=== PATIENT | female | born 2000 | race Caucasian/White ===

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

== ENCOUNTER 2021-05-06 13:01 | Emergency (ER) | payer MEDICAID ==
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
[2021-05-06 13:52] LABS: ANION GAP 18.7 mmol/L (5-15); CHLORIDE,CL 103 mmol/L (98-107); SODIUM,NA 141 mmol/L (136-145)
--- NOTE | 2021-05-06 14:23 | CR ---
[id number] RAD/RAD Chest PA And Lateral EXAM: RAD Chest PA And Lateral INDICATION: ASTHMA. COMPARISON: December 27, 2020. DISCUSSION/IMPRESSION: Cardiomediastinal silhouette is normal in size and contour. Lungs are clear. No pleural effusion or pneumothorax. Miko Souza MD 05/06/21 [id number] Thank you for allowing us to participate in the care of your patient.
[2021-05-06] MEDS ORDERED: methylPREDNISolone Sodium Succinate 125 MG/2 ML SDV IVPUSH ONE (14:31)
== END 2021-05-06 15:00 | disposition home or self-care (01) ==
LOC: KA.ED 13:01
DX: J45.901 Unspecified asthma with (acute) exacerbation (principal); F41.9 Anxiety disorder, unspecified; E87.6 Hypokalemia; F12.10 Cannabis abuse, uncomplicated; R73.9 Hyperglycemia, unspecified; Z72.0 Tobacco use; Z79.899 Other long term (current) drug therapy
CPT/HCPCS: 71046; 80053; 85025; 96374; 99284; 99285-25; J2930

== ENCOUNTER 2021-05-06 17:25 | Observation (INO) | payer MEDICAID ==
--- NOTE | 2021-05-06 17:38 | EDM.PDOC ---
ED HPI GENERAL MEDICAL PROBLEM - General Chief Complaint: Respiratory Problem Stated Complaint: SHORTNESS OF BREATH Time Seen by Provider: 05/06/21 17:30 Source of Information: Reports: Patient - History of Present Illness INITIAL COMMENTS - FREE TEXT/NARRATIVE: Ayanna, 20-year-old female is brought by ambulance to the emergency department secondary of worsening respiratory status. Was seen earlier today and provided nebulizer treatment with laboratory analysis showing no infectious process, and was given 125 mg Solu-Medrol IV. She was doing well offered admission declined and went home, this time going to another house location in a mobile home where it was deemed to be less environmental risk factors for her. She then started developing increased wheezing anxiety and respiratory distress at which time her mother called to discuss situation with me. She was unable to get out of the chair secondary of her weakness that had not been previously noted and ambulance was contacted for transport here. It is likely that she will be needing admission secondary of exacerbation of asthma with unknown exposure or other contributing factors. She denies any exposures or any other contributing events that would have worsened this other than she changed location.She denies any fever, nor chills or other changes in exposures and status with recurrence of her earlier noted bronchospasm status.No smoke or byproducts noted since leaving the hospital previously. Onset: Today Duration: Minutes:, Getting Worse Location: Reports: Chest Quality: Reports: Burning, Pressure Severity: Moderate Improves with: Reports: None Worsens with: Reports: Breathing Back Pain Score (Numeric/FACES): 7 - Related Data Allergies Allergy/AdvReac Type Severity Reaction Status Date / Time No Known Drug Allergies Allergy Unknown Other Verified 05/06/21 17:39 Home Meds: Home Meds Acetaminophen [Tylenol] 650 mg PO Q4H PRN tablet 12/30/20 [Rx] Albuterol [Proventil Neb Soln] 2.5 mg NEB Q4HRRT PRN #30 neb 12/30/20 [Rx] Albuterol [Ventolin HFA] 1 - 2 gm INH Q4HR PRN inhaler 12/30/20 [Rx] Albuterol [Proventil HFA] 200 puff INH QID 50 Days #1 inhaler 05/06/21 [Rx] Budesonide [Pulmicort] 0.5 mg NEB DAILY 05/06/21 [History] Escitalopram Oxalate 10 mg PO DAILY 30 Days #30 tablet 05/06/21 [Rx] predniSONE 20 mg PO WITHBREAKFAST 4 Days #11 tab 05/06/21 [Rx] Past Medical History HEENT History: Reports: None Cardiovascular History: Reports: None Respiratory History: Reports: Asthma Gastrointestinal History: Reports: None Genitourinary History: Reports: None 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 Neurological History: Reports: Seizure Psychiatric History: Reports: Anxiety, Depression, Suicide Attempt Endocrine/Metabolic History: Reports: None Hematologic History: Reports: None Immunologic History: Reports: None Oncologic (Cancer) History: Reports: None Dermatologic History: Reports: Eczema - Infectious Disease History Infectious Disease History: Reports: Other (See Below) Other Infectious Disease History: hx of Gonorrhea - Past Surgical History Head Surgeries/Procedures: Reports: None HEENT Surgical History: Reports: None Cardiovascular Surgical History: Reports: None GI Surgical History: Reports: None Musculoskeletal Surgical History: Reports: Other (See Below) Other Musculoskeletal Surgeries/Procedures:: bilateral knee ligament reconstruction Social & Family History - Family History Family Medical History: No Pertinent Family History - Tobacco Use Tobacco Use Status *Q: Current Some Day Tobacco User - Caffeine Use Caffeine Use: Reports: Coffee - Recreational Drug Use Recreational Drug Use: Yes Drug Use in Last 12 Months: Yes Recreational Drug Type: Reports: Marijuana/Hashish ED ROS GENERAL - Review of Systems Review Of Systems: Comprehensive ROS is negative, except as noted in HPI. ED EXAM, GENERAL - Physical Exam Exam: See Below Free Text/Narrative:: Alert, oriented with no cyanosis nor pallor noted. She is able to speak in nearly complete sentences with no demonstrated shortness of breath. PERRLA no icterus no injection. [place] moist mucous membranes with no erythema nor hypertrophy appreciated. Mild congestion in the nasal passages. Neck is soft supple with no lymphadenopathy no JVD no carotid bruit. Thorax is underlying clear with some fine rhonchi noted and significant inspiratory and expiratory wheezes changing with force of inhalation exhalation. She does not cough or have production during examination. There is no flank pain. No abdominal discomfort. Dry pink skin that is warm to touch with no peripheral edema noted. She is able to move all her extremities upon command. Course - Vital Signs Last Recorded V/S: Last Vital Signs Temp 97.1 F 05/06/21 22:53 Pulse 107 H 05/06/21 22:53 Resp 22 H 05/06/21 22:53 BP 127/73 05/06/21 22:53 Pulse Ox 94 L 05/06/21 22:53 - Orders/Labs/Meds Orders: Active Orders 24 hr Category Date Time Status Peripheral IV Care [RC] Care 05/06/21 17:41 Active RT Aerosol Therapy [RC] ASDIRECTED Care 05/06/21 18:03 Active Albuterol/Ipratropium [DuoNeb 3.0-0.5 MG/3 ML] Med 05/06/21 21:00 Active 3 ml NEB Q8HRRT Sodium Chloride 0.9% [Normal Saline] 1,000 ml Med 05/06/21 17:45 Active IV ASDIRECTED Sodium Chloride 0.9% [Saline Flush] Med 05/06/21 17:41 Active 10 ml FLUSH Q8HR PRN Peripheral IV Insertion Adult [OM.PC] Routine Oth 05/06/21 17:41 Ordered Medication Orders Albuterol (Albuterol 0.083% 2.5 Mg/3 Ml Neb Soln) 2.5 mg NEB Q4HRRT PRN PRN Reason: Wheezing Albuterol/Ipratropium (Albuterol/Ipratropium 3.0-0.5 Mg/3 Ml Neb Soln) 3 ml NEB Q8HRRT [facility] Last Admin: 05/06/21 20:07 Dose: 3 ml Documented by: LORRAINE Sodium Chloride (Normal Saline) 1,000 mls @ 150 mls/hr IV ASDIRECTED [facility] Last Admin: 05/06/21 17:55 Dose: 150 mls/hr Documented by: ROLANDO Sodium Chloride (Sodium Chloride 0.9% 10 Ml Syringe) 10 ml FLUSH Q8HR PRN PRN Reason: keep vein open Labs: Laboratory Tests 05/06/21 Range/Units 17:55 SARS CoV-2 RNA Rapid ANGELA Negative (NEGATIVE) Meds: Medications Generic Name Dose Route Start Last Admin Trade Name Freq PRN Reason Stop Dose Admin Albuterol 2.5 mg 05/06/21 22:51 Albuterol 0.083% 2.5 Mg/3 Ml Neb Soln NEB Q4HRRT PRN Wheezing Albuterol/Ipratropium 3 ml 05/06/21 21:00 05/06/21 20:07 Albuterol/Ipratropium 3.0-0.5 Mg/3 Ml Neb Soln NEB 3 ml Q8HRRT TERRANCE Administration Sodium Chloride 1,000 mls @ 150 mls/hr 05/06/21 17:45 05/06/21 17:55 Normal Saline IV 150 mls/hr ASDIRECTED TERRANCE Administration Sodium Chloride 10 ml 05/06/21 17:41 Sodium Chloride 0.9% 10 Ml Syringe FLUSH Q8HR PRN keep vein open Discontinued Medications Generic Name Dose Route Start Last Admin Trade Name Freq PRN Reason Stop Dose Admin Diphenhydramine HCl 25 mg 05/06/21 21:11 05/06/21 21:26 Diphenhydramine 25 Mg Cap PO 05/06/21 21:12 25 mg ONETIME ONE Administration Ketorolac Tromethamine 60 mg 05/06/21 21:11 05/06/21 21:25 Ketorolac 60 Mg/2 Ml Sdv IM 05/06/21 21:12 60 mg ONETIME ONE Administration Lorazepam 0.5 mg 05/06/21 18:49 05/06/21 19:04 Lorazepam 0.5 Mg Tab PO 05/06/21 18:50 0.5 mg ONETIME ONE Administration Departure - Departure Time of Disposition: 19:44 Disposition: Refer to Observation Condition: Good Clinical Impression: Asthma Qualifiers: Asthma severity: moderate Asthma persistence: unspecified Asthma complication type: with acute exacerbation Qualified Code(s): J45.901 - Unspecified asthma with (acute) exacerbation Asthma with acute exacerbation Qualifiers: Asthma severity: moderate Asthma persistence: unspecified Qualified Code(s): J45.901 - Unspecified asthma with (acute) exacerbation - Discharge Information *PRESCRIPTION DRUG MONITORING PROGRAM REVIEWED*: Not Applicable *COPY OF PRESCRIPTION DRUG MONITORING REPORT IN PATIENT AUSTEN: Not Applicable Sepsis Event Note (ED) - Focused Exam Vital Signs: Vital Signs Temp Pulse Resp BP Pulse Ox 05/06/21 17:50 116 H 24 H 140/87 95 05/06/21 17:34 97.7 F 130 H 26 H 141/70 H 93 L ED Communication - ED Communication Date/Time Date: 05/06/21 Time Called: 17:50 - Discussed Case With (1) Discussed Case With (1): Admitting Provider Person/s Notified (1): Jess A [place] - Problem List & Annotations (1) Asthma with acute exacerbation SNOMED Code(s): 325905357 Code(s): J45.901 - UNSPECIFIED ASTHMA WITH (ACUTE) EXACERBATION Status: Acute Priority: High Current Visit: Yes Qualifiers: Asthma severity: moderate Asthma persistence: unspecified Qualified Code(s): J45.901 - Unspecified asthma with (acute) exacerbation (2) Anxiety SNOMED Code(s): 58554453 Code(s): F41.9 - ANXIETY DISORDER, UNSPECIFIED Status: Acute Priority: High Current Visit: No (3) Smoking SNOMED Code(s): 29907442 Code(s): F17.200 - NICOTINE DEPENDENCE, UNSPECIFIED, UNCOMPLICATED Status: Chronic Priority: Medium Current Visit: No (4) Cannabis abuse SNOMED Code(s): 96796544 Code(s): F12.10 - CANNABIS ABUSE, UNCOMPLICATED Status: Chronic Priority: High Current Visit: No (5) Hypokalemia SNOMED Code(s): 57060852 Code(s): E87.6 - HYPOKALEMIA Status: Chronic Priority: Medium Current Visit: No (6) COVID-19 ruled out by laboratory testing SNOMED Code(s): 747517718279474218, [id number] Code(s): Z20.822 - CONTACT WITH AND (SUSPECTED) EXPOSURE TO COVID-19 Status: Acute Current Visit: Yes - Problem List Review Problem List Initiated/Reviewed/Updated: Yes - My Orders Last 24 Hours: My Active Orders 05/06/21 17:41 Peripheral IV Care [RC] Sodium Chloride 0.9% [Saline Flush] 10 ml FLUSH Q8HR PRN Peripheral IV Insertion Adult [OM.PC] Routine 05/06/21 17:45 Sodium Chloride 0.9% [Normal Saline] 1,000 ml IV ASDIRECTED 05/06/21 18:03 RT Aerosol Therapy [RC] ASDIRECTED 05/06/21 21:00 Albuterol/Ipratropium [DuoNeb 3.0-0.5 MG/3 ML] 3 ml NEB Q8HRRT - Assessment/Plan Admission H&P: Please use this note as an admission H&P Last 24 Hours: My Active Orders 05/06/21 17:41 Peripheral IV Care [RC] 09,21 Sodium Chloride 0.9% [Saline Flush] 10 ml FLUSH Q8HR PRN Peripheral IV Insertion Adult [OM.PC] Routine 05/06/21 17:45 Sodium Chloride 0.9% [Normal Saline] 1,000 ml IV ASDIRECTED 05/06/21 18:03 RT Aerosol Therapy [RC] ASDIRECTED 05/06/21 21:00 Albuterol/Ipratropium [DuoNeb 3.0-0.5 MG/3 ML] 3 ml NEB Q8HRRT Plan: Discussion with Dr. Yarbrough agreeing to the observation status overnight. We will give scheduled neb treatments and repeat laboratory analysis in the morning along with a potassium dose, anxiolytic anxiety medication, and monitor status overnight.
[2021-05-06] MEDS ORDERED: Sodium Chloride 0.9% 10 ML Syringe FLUSH PRN (17:41)
[2021-05-06] MEDS: Sodium Chloride 0.9% 1,000 ML IV SCH (17:55)
[2021-05-06] MEDS ORDERED: LORazepam 0.5 MG Tab PO ONE (18:49)
[2021-05-06] MEDS: Albuterol/Ipratropium 3.0-0.5 MG/3 ML Neb Soln NEB SCH (20:07)
[2021-05-06] MEDS ORDERED: Ketorolac 60 MG/2 ML SDV IM ONE (21:11)
[2021-05-06] MEDS ORDERED: diphenhydrAMINE 25 MG Cap PO ONE (21:11)
[2021-05-06] MEDS ORDERED: Albuterol 0.083% 2.5 MG/3 ML Neb Soln NEB PRN (22:51)
[2021-05-07] MEDS ORDERED: Melatonin 3 MG Tab PO PRN (00:25)
[2021-05-07] MEDS: Sodium Chloride 0.9% 1,000 ML IV SCH (00:39)
[2021-05-07] MEDS: Albuterol/Ipratropium 3.0-0.5 MG/3 ML Neb Soln NEB SCH (07:38)
[2021-05-07 08:16] LABS: ANION GAP 15.5 mmol/L (5-15); CHLORIDE,CL 106 mmol/L (98-107); SODIUM,NA 139 mmol/L (136-145)
--- NOTE | 2021-05-07 09:27 | PCM.PN ---
- General Info Date of Service: 05/07/21 Admission Dx/Problem (Free Text): Asthma exacerbation, Chemical exposure. Functional Status: Reports: Pain Controlled - Review of Systems General: Reports: No Symptoms HEENT: Reports: No Symptoms Pulmonary: Reports: Wheezing Cardiovascular: Reports: No Symptoms, Other (Jitters with neb treatments). Denies: Chest Pain, Palpitations Gastrointestinal: Reports: No Symptoms Genitourinary: Reports: No Symptoms Musculoskeletal: Reports: No Symptoms Skin: Reports: No Symptoms Neurological: Reports: No Symptoms Psychiatric: Reports: Anxiety (discussed needing to self control) - Patient Data Vitals - Most Recent: Last Vital Signs Temp 96.7 F L 05/07/21 09:00 Pulse 108 H 05/07/21 09:00 Resp 22 H 05/07/21 09:00 BP 139/84 05/07/21 09:00 Pulse Ox 95 05/07/21 09:00 Weight - Most Recent: 159 lb I&O - Last 24 Hours: Intake & Output 05/06/21 05/07/21 05/07/21 22:59 06:59 14:59 Intake Total 1060 985 Balance 1060 985 Lab Results Last 24 Hours: Laboratory Results - last 24 hr 05/06/21 05/07/21 05/07/21 Range/Units 17:55 07:35 07:35 WBC 15.62 H (5.00-10.00) 10^3/uL RBC 4.33 (3.80-5.50) 10^6/uL Hgb 12.9 (12.0-16.0) g/dL Hct 38.1 (37.0-47.0) % MCV 88.0 (82.0-92.0) fL MCH 29.8 (27.0-31.0) pg MCHC 33.9 (32.0-36.0) g/dL RDW 14.5 (11.5-14.5) % Plt Count 354 (150-400) 10^3/uL MPV 9.1 (7.4-10.4) fL Immature Gran % (Auto) 0.3 (0.0-5.0) % Neut % (Auto) 81.0 H (50.0-70.0) % Lymph % (Auto) 10.4 L (20.0-40.0) % [place] % (Auto) 8.1 H (2.0-8.0) % Eos % (Auto) 0.1 L (1.0-3.0) % Baso % (Auto) 0.1 (0.0-1.0) % Neut # (Auto) 12.65 H (2.50-7.00) 10^3/uL Lymph # (Auto) 1.62 (1.00-4.00) 10^3/uL [place] # (Auto) 1.27 H (0.10-0.80) 10^3/uL Eos # (Auto) 0.01 L (0.10-0.30) 10^3/uL Baso # (Auto) 0.02 (0.00-0.10) 10^3/uL Immature Gran # (Auto) 0.05 (0.00-0.50) 10^3/uL Sodium 139 (136-145) mmol/L Potassium 3.8 (3.5-5.1) mmol/L Chloride 106 (98-107) mmol/L Carbon Dioxide 21.3 (21.0-32.0) mmol/L Anion Gap 15.5 H (5-15) mmol/L BUN 11 (7-18) mg/dL Creatinine 0.50 L (0.51-1.17) mg/dL Est Cr Clr Drug Dosing 143.13 mL/min Estimated GFR (MDRD) > 60 mL/min Glucose 127 (70-140) mg/dL Calcium 8.3 L (8.7-10.3) mg/dL Total Bilirubin 0.6 (0.2-1.0) mg/dL AST 14 (14-37) U/L ALT 22 (8-29) U/L Alkaline Phosphatase 92 (46-116) U/L Total Protein 7.4 (6.4-8.2) g/dL Albumin 3.30 L (3.40-5.00) g/dL SARS CoV-2 RNA Rapid ANGELA Negative (NEGATIVE) Med Orders - Current: Current Medications Albuterol (Albuterol 0.083% 2.5 Mg/3 Ml Neb Soln) 2.5 mg NEB Q4HRRT PRN PRN Reason: Wheezing Albuterol/Ipratropium (Albuterol/Ipratropium 3.0-0.5 Mg/3 Ml Neb Soln) 3 ml NEB Q8HRRT [facility] Last Admin: 05/07/21 07:38 Dose: 3 ml Documented by: Sodium Chloride (Normal Saline) 1,000 mls @ 150 mls/hr IV ASDIRECTED [facility] Last Infusion: 05/07/21 01:34 Dose: 100 mls/hr Documented by: Melatonin (Melatonin 3 Mg Tab) 6 mg PO BEDTIME PRN PRN Reason: Insomnia Last Admin: 05/07/21 00:36 Dose: 6 mg Documented by: Sodium Chloride (Sodium Chloride 0.9% 10 Ml Syringe) 10 ml FLUSH Q8HR PRN PRN Reason: keep vein open Discontinued Medications Diphenhydramine HCl (Diphenhydramine 25 Mg Cap) 25 mg PO ONETIME ONE Stop: 05/06/21 21:12 Last Admin: 05/06/21 21:26 Dose: 25 mg Documented by: Ketorolac Tromethamine (Ketorolac 60 Mg/2 Ml Sdv) 60 mg IM ONETIME ONE Stop: 05/06/21 21:12 Last Admin: 05/06/21 21:25 Dose: 60 mg Documented by: Lorazepam (Lorazepam 0.5 Mg Tab) 0.5 mg PO ONETIME ONE Stop: 05/06/21 18:50 Last Admin: 05/06/21 19:04 Dose: 0.5 mg Documented by: - Exam General: Alert, Oriented HEENT: Pupils Equal, Pupils Reactive, EOMI, Mucous Membr. Moist/[place] Neck: Supple Lungs: Clear to Auscultation, Wheezing Cardiovascular: Regular Rate, Regular Rhythm GI/Abdominal Exam: Normal Bowel Sounds, Soft, Non-Tender, No Organomegaly, No Distention, No Abnormal Bruit, No Mass, Pelvis Stable (Female) Exam: Deferred Back Exam: Normal Inspection, Full Range of Motion Extremities: Normal Inspection, Normal Range of Motion, Non-Tender, No Pedal Edema, Normal Capillary Refill, Redness (right ankle, pruritic with insect bites, ? mosquito.) Skin: Warm Neurological: No New Focal Deficit Psy/Mental Status: Anxious - Patient Data Lab Results Last 24 hrs: Laboratory Results - last 24 hr 05/06/21 05/07/21 05/07/21 Range/Units 17:55 07:35 07:35 WBC 15.62 H (5.00-10.00) 10^3/uL RBC 4.33 (3.80-5.50) 10^6/uL Hgb 12.9 (12.0-16.0) g/dL Hct 38.1 (37.0-47.0) % MCV 88.0 (82.0-92.0) fL MCH 29.8 (27.0-31.0) pg MCHC 33.9 (32.0-36.0) g/dL RDW 14.5 (11.5-14.5) % Plt Count 354 (150-400) 10^3/uL MPV 9.1 (7.4-10.4) fL Immature Gran % (Auto) 0.3 (0.0-5.0) % Neut % (Auto) 81.0 H (50.0-70.0) % Lymph % (Auto) 10.4 L (20.0-40.0) % [place] % (Auto) 8.1 H (2.0-8.0) % Eos % (Auto) 0.1 L (1.0-3.0) % Baso % (Auto) 0.1 (0.0-1.0) % Neut # (Auto) 12.65 H (2.50-7.00) 10^3/uL Lymph # (Auto) 1.62 (1.00-4.00) 10^3/uL [place] # (Auto) 1.27 H (0.10-0.80) 10^3/uL Eos # (Auto) 0.01 L (0.10-0.30) 10^3/uL Baso # (Auto) 0.02 (0.00-0.10) 10^3/uL Immature Gran # (Auto) 0.05 (0.00-0.50) 10^3/uL Sodium 139 (136-145) mmol/L Potassium 3.8 (3.5-5.1) mmol/L Chloride 106 (98-107) mmol/L Carbon Dioxide 21.3 (21.0-32.0) mmol/L Anion Gap 15.5 H (5-15) mmol/L BUN 11 (7-18) mg/dL Creatinine 0.50 L (0.51-1.17) mg/dL Est Cr Clr Drug Dosing 143.13 mL/min Estimated GFR (MDRD) > 60 mL/min Glucose 127 (70-140) mg/dL Calcium 8.3 L (8.7-10.3) mg/dL Total Bilirubin 0.6 (0.2-1.0) mg/dL AST 14 (14-37) U/L ALT 22 (8-29) U/L Alkaline Phosphatase 92 (46-116) U/L Total Protein 7.4 (6.4-8.2) g/dL Albumin 3.30 L (3.40-5.00) g/dL SARS CoV-2 RNA Rapid ANGELA Negative (NEGATIVE) Result Diagrams: 05/07/21 07:35 05/07/21 07:35 Sepsis Event Note - Evaluation Sepsis Screening Result: No Definite Risk - Focused Exam Vital Signs: Vital Signs Temp Pulse Resp BP Pulse Ox Pulse Ox Pulse Ox 05/07/21 09:00 96.7 F L 108 H 22 H 139/84 95 05/07/21 08:59 93 L 05/07/21 08:25 94 L 05/07/21 07:38 84 94 L 05/07/21 07:36 94 L 05/07/21 03:00 97.8 F 105 H 24 H 125/62 95 05/06/21 22:53 97.1 F 107 H 22 H 127/73 94 L - Problem List & Annotations (1) Asthma with acute exacerbation SNOMED Code(s): 504523446 Code(s): J45.901 - UNSPECIFIED ASTHMA WITH (ACUTE) EXACERBATION Status: Acute Priority: High Current Visit: Yes Qualifiers: Asthma severity: moderate Asthma persistence: unspecified Qualified Code( s): J45.901 - Unspecified asthma with (acute) exacerbation (2) Anxiety SNOMED Code(s): 33657279 Code(s): F41.9 - ANXIETY DISORDER, UNSPECIFIED Status: Acute Priority: High Current Visit: No (3) Smoking SNOMED Code(s): 13716831 Code(s): F17.200 - NICOTINE DEPENDENCE, UNSPECIFIED, UNCOMPLICATED Status: Chronic Priority: Medium Current Visit: No (4) Cannabis abuse SNOMED Code(s): 16974512 Code(s): F12.10 - CANNABIS ABUSE, UNCOMPLICATED Status: Chronic Priority: High Current Visit: No (5) Hypokalemia SNOMED Code(s): 93372268 Code(s): E87.6 - HYPOKALEMIA Status: Chronic Priority: Medium Current Visit: No (6) COVID-19 ruled out by laboratory testing SNOMED Code(s): 077342619245417348, 780873361123057395 Code(s): Z20.822 - CONTACT WITH AND (SUSPECTED) EXPOSURE TO COVID-19 Status: Acute Current Visit: Yes - Problem List Review Problem List Initiated/Reviewed/Updated: Yes - My Orders Last 24 Hours: My Active Orders 05/06/21 17:41 Peripheral IV Care [RC] Sodium Chloride 0.9% [Saline Flush] 10 ml FLUSH Q8HR PRN Peripheral IV Insertion Adult [OM.PC] Routine 05/06/21 17:45 Sodium Chloride 0.9% [Normal Saline] 1,000 ml IV ASDIRECTED 05/06/21 18:03 RT Aerosol Therapy [RC] ASDIRECTED 05/06/21 19:39 Patient Status [ADT] Routine 05/06/21 19:41 Code Status [Resuscitation Status] Stat 05/06/21 21:00 Albuterol/Ipratropium [DuoNeb 3.0-0.5 MG/3 ML] 3 ml NEB Q8HRRT 05/06/21 22:51 Albuterol [Proventil Neb Soln] 2.5 mg NEB Q4HRRT PRN 05/06/21 22:52 RT Aerosol Therapy [RC] ASDIRECTED 05/07/21 00:25 Melatonin 6 mg PO BEDTIME PRN 05/07/21 Breakfast Regular Diet [DIET] - Plan Plan:: Time spent with respiratory therapy today as well as myself educating on anxiety component, as well as the jitters with her albuterol nebulizers. Lengthy discussion also on smoking status as well as cannabis which could be an irritant multifocal in respiratory status as well as psychological dependence, with the unknown factor of how it affects and has residual effects on bronchospasm. Her assessment today reveals intermittent wheezing to which she states has been ongoing for the past year or more. She states that when she was sent [place] on [place] have associated only time she can remember roughly over 2 years ago that she had complete clear respiratory status with no complaints or concerns. I did discuss with food exposures considerations but nothing has bothered her here. Stop her IV fluid and ambulate see how she is doing with potential discharge later this morning. Consideration for DuoNeb, albuterol ipratropium to be used is her baseline medication as she feels it does not give her the jitters as severe it using the straight albuterol for rescue only. She will still go to the pharmacy and picker medications that were ordered yesterday for tapering prednisone treatment, as well as the initiation of escitalopram for anxiety depressive component. Will review with discharge summary again this morning.
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
== END 2021-05-07 11:02 | disposition home or self-care (01) ==
LOC: KA.ED 17:25 → KA.MS 19:39
PROVIDERS: ADMIT Internal Medicine; ATTEND Internal Medicine
DX: J45.901 Unspecified asthma with (acute) exacerbation (principal); F41.9 Anxiety disorder, unspecified; F17.200 Nicotine dependence, unspecified, uncomplicated; F12.10 Cannabis abuse, uncomplicated; E87.6 Hypokalemia; Z20.822 Contact with and (suspected) exposure to COVID-19; Z79.899 Other long term (current) drug therapy
CPT/HCPCS: 36415; 80053; 85025; 94640; 96372; 99217; 99220; 99285-25; A9270-GY; G0378; J1885; J7030; J7620-GY; U0002

== ENCOUNTER 2022-01-22 21:57 | Emergency (ER) | payer MEDICAID ==
[2022-01-22] MEDS ORDERED: Albuterol/Ipratropium 3.0-0.5 MG/3 ML Neb Soln NEB ONE ×2 (22:16→22:46)
[2022-01-22] MEDS ORDERED: methylPREDNISolone Sodium Succinate 125 MG/2 ML SDV IVPUSH ONE (22:35)
[2022-01-22] MEDS ORDERED: LORazepam 2 MG/ML SDV IVPUSH ONE (22:41)
[2022-01-22] MEDS: Sodium Chloride 0.9% 1,000 ML IV ONE (22:45)
[2022-01-22] MEDS ORDERED: Ketorolac 30 MG/ML SDV IVPUSH ONE (23:20)
[2022-01-22 23:37] LABS: RESPIRATORY SYNCYTIAL VIR NAA NEGATIVE (NEGATIVE)
[2022-01-22] MEDS ORDERED: Albuterol 0.083% 2.5 MG/3 ML Neb Soln NEB ONE (23:44)
[2022-01-22] MEDS ORDERED: Acetaminophen 500 MG Tab PO ONE (23:44)
[2022-01-23 06:47] LABS: CORONAVIRUS COVID-19 NAA NEGATIVE (NEGATIVE)
== END 2022-01-23 | disposition home or self-care (01) ==
LOC: KA.ED 21:57
DX: J45.901 Unspecified asthma with (acute) exacerbation (principal); Z20.822 Contact with and (suspected) exposure to COVID-19
CPT/HCPCS: 0241U; 71046; 96374; 96375; 99284; 99285-25; A9270-GY; J1885; J2060; J2930; J7030; J7613-GY; J7620-GY

== ENCOUNTER 2022-09-30 18:10 | Emergency (ER) | payer MEDICAID ==
[2022-09-30] MEDS ORDERED: methylPREDNISolone Sodium Succinate 125 MG/2 ML SDV ONE (18:20)
[2022-09-30] MEDS ORDERED: Albuterol/Ipratropium 3.0-0.5 MG/3 ML Neb Soln ONE ×2 (18:20→19:35)
[2022-09-30] MEDS ORDERED: Albuterol/Ipratropium 3.0-0.5 MG/3 ML Neb Soln NEB ONE (18:25)
[2022-09-30] MEDS ORDERED: methylPREDNISolone Sodium Succinate 125 MG/2 ML SDV IVPUSH ONE (18:25)
[2022-09-30] MEDS ORDERED: Albuterol 0.083% 2.5 MG/3 ML Neb Soln NEB ONE (19:33)
== END 2022-09-30 19:45 | disposition home or self-care (01) ==
LOC: KA.ED 18:10
DX: J45.909 Unspecified asthma, uncomplicated (principal); Z87.891 Personal history of nicotine dependence; Z79.899 Other long term (current) drug therapy
CPT/HCPCS: 71046; 94640; 96374; 99284; 99284-25; J2930; J7613-GY; J7620-GY

== ENCOUNTER 2023-02-14 11:11 | Emergency (ER) | payer BC, MEDICAID | END 2023-02-14 11:53 | disposition home or self-care (01) | LOC: KA.ED 11:11 | DX: H60.311 Diffuse otitis externa, right ear (principal); J45.909 Unspecified asthma, uncomplicated | CPT/HCPCS: 99282; 99283 ==

== ENCOUNTER 2023-07-17 12:15 | Emergency (ER) | payer BC, MEDICAID ==
[2023-07-17 12:39] LABS: BASOPHILS ABSOLUTE AUTO 0.04 10^3/uL (0.00-0.10); BASOPHILS PERCENT AUTO 0.6 % (0.0-1.0); EOSINOPHILS ABSOLUTE AUTO 0.72 10^3/uL (0.10-0.30); EOSINOPHILS PERCENT AUTO 11.1 % (1.0-3.0); HEMATOCRIT 41.3 % (37.0-47.0); HEMOGLOBIN 13.7 g/dL (12.0-16.0); IMMATURE GRAN ABSOLUTE AUTO 0.02 10^3/uL (0.00-0.50); IMMATURE GRAN PERCENT AUTO 0.3 % (0.0-5.0); LYMPHOCYTES ABSOLUTE AUTO 1.16 10^3/uL (1.00-4.00); LYMPHOCYTES PERCENT AUTO 17.9 % (20.0-40.0); MEAN CORPUSCULAR HEMOGLOBIN 29.4 pg (27.0-31.0); MEAN CORPUSCULAR HGB CONC 33.2 g/dL (32.0-36.0); MEAN CORPUSCULAR VOLUME 88.6 fL (82.0-92.0); MONOCYTES ABSOLUTE AUTO 0.45 10^3/uL (0.10-0.80); MONOCYTES PERCENT AUTO 6.9 % (2.0-8.0); NEUTROPHILS PERCENT AUTO 63.2 % (50.0-70.0); PLATELET COUNT,PLT 373 10^3/uL (150-400); RED BLOOD CELL COUNT 4.66 10^6/uL (3.80-5.50); RED CELL DISTRIBUTION WIDTH 13.8 % (11.5-14.5); WHITE BLOOD CELL COUNT,WBC 6.49 10^3/uL (5.00-10.00)
[2023-07-17] MEDS: Albuterol 0.083% 2.5 MG/3 ML Neb Soln NEB ONE (12:42)
[2023-07-17] MEDS: Albuterol/Ipratropium 3.0-0.5 MG/3 ML Neb Soln NEB ONE (13:33)
[2023-07-17] MEDS: methylPREDNISolone Sodium Succinate 125 MG/2 ML SDV IM ONE (13:49)
== END 2023-07-17 14:35 | disposition home or self-care (01) ==
LOC: KA.ED 12:15
DX: J45.41 Moderate persistent asthma with (acute) exacerbation (principal); F17.210 Nicotine dependence, cigarettes, uncomplicated; Z79.899 Other long term (current) drug therapy
CPT/HCPCS: 36415; 71046; 85025; 94640; 96372; 99284; 99285; J2930; J7613-GY; J7620-GY

== ENCOUNTER 2024-02-24 16:21 | Emergency (ER) | payer SELFPAY ==
[2024-02-24 16:57] LABS: APPEARANCE,URINE SLIGHTLY CLOUDY (CLEAR); BILIRUBIN,URINE NEGATIVE (NEGATIVE); COLOR,URINE YELLOW (YELLOW); GLUCOSE,URINE NEGATIVE (NEGATIVE); KETONES,URINE NEGATIVE (NEGATIVE); LEUKOCYTE ESTERASE,URINE TRACE (NEGATIVE); NITRITE,URINE NEGATIVE (NEGATIVE); OCCULT BLOOD,URINE NEGATIVE (NEGATIVE); PROTEIN,URINE NEGATIVE (NEGATIVE); UROBILINOGEN,URINE 0.2 E.U./dL (0.2-1.0)
[2024-02-24 17:06] LABS: BACTERIA,URINE FEW /HPF (NONE TO FEW); EPITHELIAL CELLS,URINE MODERATE /LPF; MUCUS,URINE FEW /LPF (NEGATIVE); RBC,URINE 0-5 /HPF (0-5); WBC,URINE 0-5 /HPF (0-5)
[2024-02-24] MEDS: Fluconazole 100 MG Tab PO ONE (18:51)
== END 2024-02-24 19:12 | disposition home or self-care (01) ==
LOC: KA.ED 16:21
DX: N89.8 Other specified noninflammatory disorders of vagina (principal); B37.31 Acute candidiasis of vulva and vagina; N92.6 Irregular menstruation, unspecified; Z32.02 Encounter for pregnancy test, result negative; Z79.51 Long term (current) use of inhaled steroids; Z79.899 Other long term (current) drug therapy; Z86.16 Personal history of COVID-19
CPT/HCPCS: 81001; 81025; 87070; 87086; 87205; 87210; 99283; A9270-GY

== ENCOUNTER 2024-03-06 18:02 | Emergency (ER) | payer SELFPAY ==
[2024-03-06 18:44] LABS: BASOPHILS ABSOLUTE AUTO 0.06 10^3/uL (0.00-0.10); BASOPHILS PERCENT AUTO 0.8 % (0.0-1.0); EOSINOPHILS ABSOLUTE AUTO 0.85 10^3/uL (0.10-0.30); EOSINOPHILS PERCENT AUTO 11.6 % (1.0-3.0); HEMATOCRIT 39.1 % (37.0-47.0); IMMATURE GRAN ABSOLUTE AUTO 0.01 10^3/uL (0.00-0.50); IMMATURE GRAN PERCENT AUTO 0.1 % (0.0-5.0); LYMPHOCYTES ABSOLUTE AUTO 2.18 10^3/uL (1.00-4.00); LYMPHOCYTES PERCENT AUTO 29.8 % (20.0-40.0); MEAN CORPUSCULAR HEMOGLOBIN 29.3 pg (27.0-31.0); MEAN CORPUSCULAR HGB CONC 33.2 g/dL (32.0-36.0); MEAN CORPUSCULAR VOLUME 88.1 fL (82.0-92.0); MEAN PLATELET VOLUME 9.1 fL (7.4-10.4); MONOCYTES ABSOLUTE AUTO 0.49 10^3/uL (0.10-0.80); MONOCYTES PERCENT AUTO 6.7 % (2.0-8.0); NEUTROPHILS ABSOLUTE AUTO 3.72 10^3/uL (2.50-7.00); PLATELET COUNT,PLT 365 10^3/uL (150-400); RED BLOOD CELL COUNT 4.44 10^6/uL (3.80-5.50); RED CELL DISTRIBUTION WIDTH 13.8 % (11.5-14.5); WHITE BLOOD CELL COUNT,WBC 7.31 10^3/uL (5.00-10.00)
[2024-03-06 19:01] LABS: APPEARANCE,URINE SLIGHTLY CLOUDY (CLEAR); BILIRUBIN,URINE SMALL (NEGATIVE); COLOR,URINE YELLOW (YELLOW); GLUCOSE,URINE NEGATIVE (NEGATIVE); KETONES,URINE NEGATIVE (NEGATIVE); LEUKOCYTE ESTERASE,URINE NEGATIVE (NEGATIVE); NITRITE,URINE NEGATIVE (NEGATIVE); PROTEIN,URINE 30 mg/dL (NEGATIVE); UROBILINOGEN,URINE 0.2 E.U./dL (0.2-1.0)
[2024-03-06 19:02] LABS: OCCULT BLOOD,URINE SMALL (NEGATIVE)
[2024-03-06 19:03] LABS: BACTERIA,URINE FEW /HPF (NONE TO FEW); EPITHELIAL CELLS,URINE MODERATE /LPF; MUCUS,URINE FEW /LPF (NEGATIVE); WBC,URINE 0-5 /HPF (0-5)
[2024-03-06 19:07] LABS: ANION GAP 14.4 mmol/L (5-15); BLOOD UREA NITROGEN,BUN 12 mg/dL (7-18); CALCIUM 8.6 mg/dL (8.7-10.3); CARBON DIOXIDE,CO2 24.5 mmol/L (21.0-32.0); CHLORIDE,CL 103 mmol/L (98-107); CREATININE 0.64 mg/dL (0.51-1.17); EST CRCL DRUG DOSING (CG) 109.05 mL/min; GLUCOSE RANDOM 123 mg/dL (70-140); POTASSIUM,K 3.9 mmol/L (3.5-5.1); SODIUM,NA 138 mmol/L (136-145)
[2024-03-06 19:12] LABS: ESTIMATED GFR 128 mL/min (>=60); HCG QUANTITATIVE < 1 mIU/mL
== END 2024-03-06 19:56 | disposition home or self-care (01) ==
LOC: KA.ED 18:02
DX: O99.891 Other specified diseases and conditions complicating pregnancy (principal); N85.8 Other specified noninflammatory disorders of uterus; O99.511 Diseases of the respiratory system complicating pregnancy, first trimester; J45.909 Unspecified asthma, uncomplicated; Z79.51 Long term (current) use of inhaled steroids; Z79.899 Other long term (current) drug therapy; Z86.16 Personal history of COVID-19; Z3A.01 Less than 8 weeks gestation of pregnancy
CPT/HCPCS: 36415; 80048; 81001; 81025; 84702; 85025; 99284; A9270-GY

== ENCOUNTER 2024-10-19 09:58 | Emergency (ER) | payer BC ==
[2024-10-19 11:33] LABS: BASOPHILS ABSOLUTE AUTO 0.05 10^3/uL (0.00-0.10); BASOPHILS PERCENT AUTO 0.3 % (0.0-1.0); HEMATOCRIT 40.4 % (37.0-47.0); HEMOGLOBIN 13.5 g/dL (12.0-16.0); IMMATURE GRAN ABSOLUTE AUTO 0.11 10^3/uL (0.00-0.04); IMMATURE GRAN PERCENT AUTO 0.7 % (0.0-0.4); LYMPHOCYTES ABSOLUTE AUTO 1.61 10^3/uL (1.00-4.00); MEAN CORPUSCULAR HEMOGLOBIN 30.1 pg (27.0-31.0); MEAN CORPUSCULAR HGB CONC 33.4 g/dL (32.0-36.0); MEAN PLATELET VOLUME 9.1 fL (7.4-10.4); MONOCYTES ABSOLUTE AUTO 0.99 10^3/uL (0.10-0.80); MONOCYTES PERCENT AUTO 6.1 % (2.0-8.0); NEUTROPHILS ABSOLUTE AUTO 12.59 10^3/uL (2.50-7.00); NEUTROPHILS PERCENT AUTO 77.9 % (50.0-70.0); PLATELET COUNT,PLT 365 10^3/uL (150-400); RED BLOOD CELL COUNT 4.49 10^6/uL (3.80-5.50); RED CELL DISTRIBUTION WIDTH 13.6 % (11.5-14.5); WHITE BLOOD CELL COUNT,WBC 16.15 10^3/uL (5.00-10.00)
[2024-10-19] MEDS: Albuterol/Ipratropium 3.0-0.5 MG/3 ML Neb Soln NEB ONE ×2 (11:39→12:07)
[2024-10-19 11:43] VITALS: BP 116/63
[2024-10-19 11:45] LABS: CALCIUM 9.3 mg/dL (8.7-10.3); CARBON DIOXIDE,CO2 22.5 mmol/L (21.0-32.0); CREATININE 0.59 mg/dL (0.51-1.17); EST CRCL DRUG DOSING (CG) 122.67 mL/min
[2024-10-19 11:48] LABS: ANION GAP 11.8 mmol/L (5-15); POTASSIUM,K 4.3
[2024-10-19 12:04] LABS: APPEARANCE,URINE CLEAR (CLEAR); BILIRUBIN,URINE NEGATIVE (NEGATIVE); COLOR,URINE YELLOW (YELLOW); GLUCOSE,URINE NEGATIVE (NEGATIVE); KETONES,URINE 40 mg/dL (NEGATIVE); LEUKOCYTE ESTERASE,URINE NEGATIVE (NEGATIVE); NITRITE,URINE NEGATIVE (NEGATIVE); OCCULT BLOOD,URINE NEGATIVE (NEGATIVE); PROTEIN,URINE NEGATIVE (NEGATIVE); UROBILINOGEN,URINE 0.2 E.U./dL (0.2-1.0)
[2024-10-19 12:11] LABS: EPITHELIAL CELLS,URINE FEW /LPF; RBC,URINE 0-5 /HPF (0-5); WBC,URINE 0-5 /HPF (0-5)
[2024-10-19 12:12] LABS: BACTERIA,URINE RARE /HPF (NONE TO FEW)
[2024-10-19 12:55] VITALS: PULSE 97
== END 2024-10-19 12:32 | disposition home or self-care (01) ==
LOC: KA.ED 09:58
DX: J18.9 Pneumonia, unspecified organism (principal); J20.9 Acute bronchitis, unspecified; J45.909 Unspecified asthma, uncomplicated; Z86.16 Personal history of COVID-19; Z79.51 Long term (current) use of inhaled steroids; Z79.899 Other long term (current) drug therapy
CPT/HCPCS: 36415; 71045; 80048; 81001; 81025; 85025; 87428-QW; 87651-QW; 94640; 99284; J7620-GY